=== PATIENT | female | born 1970 | race Caucasian/White ===

== ENCOUNTER 2019-04-18 15:23 | Emergency (ER) | payer BC ==
[2019-04-18 15:30] VITALS: TEMP 97.8; BMI 32.3
--- NOTE | 2019-04-18 16:47 | PDOC ---
History of Present Illness - General Chief Complaint: Pain, Acute Stated Complaint: Abdomnal pain/Headache Time Seen by Provider: 04/18/19 16:45 History Source: Patient Exam Limitations: No Limitations - History of Present Illness Initial Comments: 04/18/19 16:47 PCP: Ronald Boss Surgery: Ahmet Murrell HPI: 48 yo F no sig PMH presenting with 10 days N/V/D, abdominal pain. Seen yesterday at urgent care with reportedly negative UA, EKG, Influenza Swab. Patient endorses chronic umbilical hernia that has been worsening (more popping out) over this same period. Reports 4-5 episodes of NBNB emesis of food. Diarrhea (loose / soft, not watery) without blood or dark color. Pain is worse with BMs, worse with hernia irritation. Patient has a surgery scheduled for hernia repair in June at [facility]. Abdomen is painful when hernia is out / has been in and out - currently reduced. Denies CP, SOB, fever, chills, headache, lightheadedness, numbness / tingling. No recent travel or sick contacts. NKDA Meds: Denies PMH: Denies PSH: Hysterectomy, Cholecystectomy Past History - Travel Traveled outside of the country in the last 30 days: No Close contact w/someone who was outside of country & ill: No - Past Medical History Allergies/Adverse Reactions: Allergies Allergy/AdvReac Type Severity Reaction Status Date / Time No Known Allergies Allergy Verified 07/06/13 19:05 Home Medications: Ambulatory Orders Amox-Tr/K Cl [Augmentin - 875Mg Tablet] 1 tab PO BID 7 Days #14 tablet 04/18/19 COPD: No Dialysis: No HTN: No - Surgical History Cholecystectomy: Yes - Immunization History Immunization Up to Date: No - Psycho Social/Smoking Cessation Hx Smoking History: Never smoked Have you smoked in the past 12 months: No Information on smoking cessation initiated: No Hx Alcohol Use: No Drug/Substance Use Hx: No Review of Systems - Review of Systems Able to Perform ROS?: Yes Is the patient limited Yoruba proficient: Yes Constitutional: No: Chills, Diaphoresis, Fever, Weakness HEENTM: No: Recent change in vision, Nose Congestion, Throat Pain Respiratory: No: Cough, Shortness of Breath, Wheezing Cardiac (ROS): No: Chest Pain, Irregular Heart Rate, Lightheadedness, Palpitations, Syncope, Chest Tightness ABD/GI: Yes: Diarrhea, Nausea, Vomiting. No: Constipated, Poor Appetite, Poor Fluid Intake : No: Burning, Dysuria, Discharge, Frequency, Pain, Urgency Musculoskeletal: No: Muscle Pain, Muscle Weakness, Neck Pain Integumentary: No: Dryness, Pallor, Pruritus, Rash, Sweating Neurological: No: Headache, Numbness, Tingling, Weakness Psychiatric: No: Stressors, Change in Appetite Endocrine: No: Increased Thirst, Increased Urine Hematologic/Lymphatic: No: Anemia, Blood Clots, Easy Bleeding All Other Systems: Reviewed and Negative *Physical Exam - Vital Signs Last Vital Signs Temp Pulse Resp BP Pulse Ox 97.8 F 114 H 18 119/84 97 04/18/19 15:27 04/18/19 15:27 04/18/19 15:27 04/18/19 15:27 04/18/19 15:27 - Physical Exam 04/18/19 17:28 Vitals reviewed, mild tachycardia GEN: Well appearing, appears stated age, NAD, comfortable. AAOx3. HEENT: NCAT, EOMI, PERRL. Sclera anicteric, non-injected. No facial asymmetry. Moist mucous membranes. Normal voice. Trachea midline. CV: Tachycardic, NSR, S1/S2, no murmurs / rubs / gallops appreciated. LUNG: CTAB, normal work of breathing. No wheezes, rales, rhonchi. No cough. Speaking full sentences. GI: Soft, NTND, +BS, no guarding, no rebound. No masses. Neg CVAT b/l. EXTREMITIES: 2+ distal pulses. No LE edema. No obvious deformities of all extremities. SKIN: Warm, dry, no rashes appreciated, non-jaundiced. PSYCH: Normal mood and affect. Cooperative and appropriate. NEURO: CN grossly intact. Moving all extremities well. Normal strength and sensation grossly. ED Treatment Course - LABORATORY CBC & Chemistry Diagram: 04/18/19 17:35 04/18/19 17:35 Medical Decision Making - Medical Decision Making 04/18/19 17:28 48 yo F no sig PMH presenting with 10 days N/V/D, abdominal pain. Exam notable for tachycardia to 110s. Likely Gastroenteritis exacerbating pain from umbilical hernia, r/o ischemic bowel vs other acute intra-abdominal pathology ( colitis, ileus, diverticulitis) vs UTI/Pyelo. Tachycardia believed 2/2 hydration status. - CBC, CMP, Cardiac Profile, Lactate, Lipase, UA - 1L IVF, Zofran - EKG 04/18/19 18:21 - EKG Normal rate, rhythm, axis, normal intervals, no ischemic changes 04/18/19 20:14 - CBC with mild leukocytosis 11.4 04/18/19 20:38 - Remaining labs unremarkable, lactate pending 04/18/19 21:03 - Lactic 3.4 - Rocephin - CTAP 04/18/19 23:01 - CTAP demonstrating hepatomegaly and steatosis, wall-thickening of the colon c/ w colitis. Left ovary complex cystic process. Hernias without incarceration. Likely discharge on Augmentin 875 PO BID for 7 days Pending Repeat Lactic Acid 04/18/19 23:19 - Pt with continued nausea, reglan ordered Discharge - Discharge Information Problems reviewed: Yes Clinical Impression/Diagnosis: Nausea and vomiting Qualifiers: Vomiting type: unspecified Vomiting Intractability: non-intractable Qualified Code(s): R11.2 - Nausea with vomiting, unspecified Condition: Stable Disposition: HOME - Admission No - Additional Discharge Information Prescriptions: Amox-Tr/K Cl [Augmentin - 875Mg Tablet] 1 tab PO BID 7 Days #14 tablet - Follow up/Referral Referrals: Ronald Boss MD [Primary Care Provider] - - Patient Discharge Instructions Patient Printed Discharge Instructions: DI for Colitis Additional Instructions: You can continue to take over the counter pain medications are needed and as directed on package label for your pain. A prescription for Augmentin has been sent to your pharmacy. Take this as directed, twice daily, for 7 days. Please follow up with your primary care on Saturday and your surgeon as scheduled. Your pain is likely related to your hernia moving while you experience changes in abdominal pressure due to nausea and vomiting. Your nausea , vomiting, and diarrhea are likely due to a viral illness. Return to the ED for any new or concerning symptoms. - Post Discharge Activity
--- NOTE | 2019-04-18 17:21 | PDOC ---
Attending Attestation - Resident Resident Name: Carlos Eduardo Márquez - ED Attending Attestation I have performed the following: I have examined & evaluated the patient, The case was reviewed & discussed with the resident, I agree w/resident's findings & plan, Exceptions are as noted - HPI HPI: 04/18/19 18:31 Ms. Duffy is a 48 yo F no sig PMH presenting with 10 days of nausea, vomiting, diarrhea, abdominal pain Pt was seen in the Urgent care yesterday (influenza negative) however, her symptoms have worsened No fevers or chills Last night, pt reports that she was in the bathroom hourly Vomiting is most pronounced if she attempts to eat She is able to hydrate but has no desire to eat or drink Denies CP, SOB, fever, chills, headache, lightheadedness, numbness / tingling. No recent travel or sick contacts. NKDA Meds: Denies PMH: Denies PSH: Hysterectomy, Cholecystectomy - Physicial Exam PE: 04/18/19 17:21 GENERAL: The patient is in no acute distress. ENT: Ears normal, nares patent, oropharynx clear without exudates. Moist mucous membranes. NECK: Normal range of motion LUNGS: Breath sounds equal, clear to auscultation bilaterally. No wheezes, and no crackles. HEART:Regular rate and rhythm, normal S1 and S2 without murmur, rub or gallop. ABDOMEN: Soft, epigastric, LUQ and LLQ tenderness to palpation, no involuntary guarding or rebound EXTREMITIES: Normal range of motion, no edema. NEUROLOGICAL: Cranial nerves II through XII grossly intact. Normal speech. No focal neurological deficits. SKIN: Warm, Dry, normal turgor, no rashes or lesions noted. 04/18/19 18:33 - Medical Decision Making 04/18/19 18:38 48 yo F presenting with abdominal pain, n/v/d DD: Colitis, diverticulitis, ileus, SBO unlikely, Gastroenteritis EKG: NSR rate of 87 bpm, axis nml, intervals nml, no st elevation or depression , t wave inverted v2, v4
[2019-04-18] MEDS ORDERED: SODIUM CHLORIDE 1,000 ML IV STA (17:24)
[2019-04-18] MEDS ORDERED: ONDANSETRON 4 MG/2 ML VIAL IVPUSH ONE (18:21)
[2019-04-18 20:02] LABS: BASO % 0.7 % (0-2.0); EOS % 2.3 % (0-4.5); HEMATOCRIT 38.9 % (32.4-45.2); HEMOGLOBIN 12.1 GM/dL (10.7-15.3); LYMPH % 17.3 % (8-40); MCH 24.7 pg (25.7-33.7); MCHC 31.2 g/dl (32.0-36.0); MEAN CELL VOLUME 79.1 fl (80-96); MEAN PLT VOLUME 8.7 fl (7.5-11.1); MONO % 7.2 % (3.8-10.2); NEUT % 72.5 % (42.8-82.8); PLATELET COUNT 371 K/MM3 (134-434); RBC 4.92 M/mm3 (3.60-5.2); RDW 14.8 % (11.6-15.6); WHITE BLOOD COUNT 11.4 K/mm3 (4.0-10.0)
[2019-04-18 20:30] LABS: ALBUMIN 3.4 g/dl (3.4-5.0); ALK PHOS 67 U/L (45-117); ANION GAP 8 MMOL/L (8-16); BILIRUBIN,TOTAL 0.6 mg/dL (0.2-1); BLOOD UREA NITROGEN 10.5 mg/dL (7-18); CALCIUM 8.2 mg/dL (8.5-10.1); CHLORIDE 106 mmol/L (98-107); CO2 26 mmol/L (21-32); CREATININE 0.7 mg/dL (0.55-1.3); GLUCOSE,RANDOM 95 mg/dL (74-106); LIPASE 126 U/L (73-393); SGOT/AST 14 U/L (15-37); SGPT/ALT 19 U/L (13-61); SODIUM 140 mmol/L (136-145); TOT PROT 7.2 g/dl (6.4-8.2)
[2019-04-18] MEDS ORDERED: CEFTRIAXONE 1 GM in DEXTROSE 5%-WATER - 100 ML IVPB ONE (21:03)
[2019-04-18] MEDS ORDERED: CEFTRIAXONE 1 GM/50 ML BAG ONE (21:41)
--- NOTE | 2019-04-18 23:14 | PDOC ---
*Physical Exam - Vital Signs Last Vital Signs Temp Pulse Resp BP Pulse Ox 97.8 F 114 H 18 119/84 99 04/18/19 15:27 04/18/19 15:27 04/18/19 15:27 04/18/19 15:27 04/18/19 16:30 - Physical Exam 04/19/19 19:55 Pt picked up on signout. 48 yo F no sig PMH presenting with 10 days N/V/D, abdominal pain. Seen yesterday at urgent care with reportedly negative UA, EKG, Influenza Swab. Patient endorses chronic umbilical hernia that has been worsening (more popping out) over this same period. Reports 4-5 episodes of NBNB emesis of food. Diarrhea (loose / soft, not watery) without blood or dark color. Pain is worse with BMs, worse with hernia irritation. Patient has a surgery scheduled for hernia repair in June at [facility]. Abdomen is painful when hernia is out / has been in and out - currently reduced. ED Treatment Course - LABORATORY CBC & Chemistry Diagram: 04/18/19 17:35 04/18/19 17:35 - ADDITIONAL ORDERS Additional order review: Laboratory Results 04/18/19 04/18/19 19:43 17:35 Sodium 140 Potassium 4.0 Chloride 106 Carbon Dioxide 26 Anion Gap 8 BUN 10.5 Creatinine 0.7 Est GFR (CKD-EPI)AfAm 117.09 Est GFR (CKD-EPI)NonAf 101.02 Random Glucose 95 Lactic Acid 3.4 H* Calcium 8.2 L Total Bilirubin 0.6 AST 14 L ALT 19 Alkaline Phosphatase 67 Creatine Kinase 55 Troponin I < 0.02 Total Protein 7.2 Albumin 3.4 Lipase 126 04/18/19 17:35 RBC 4.92 MCV 79.1 L MCHC 31.2 L RDW 14.8 D MPV 8.7 Neutrophils % 72.5 Lymphocytes % 17.3 Monocytes % 7.2 Eosinophils % 2.3 Basophils % 0.7 - Medications Given in the ED: ED Medications Discontinued Medications Generic Name Dose Route Start Last Admin Trade Name Freq PRN Reason Stop Dose Admin Sodium Chloride 1,000 mls @ 1,000 mls/hr 04/18/19 17:24 04/18/19 18:45 Normal Saline - IV 04/18/19 18:23 1,000 mls/hr ASDIR STA Administration Ceftriaxone Sodium 1 gm/ 100 mls @ 200 mls/hr 04/18/19 21:03 04/18/19 22:51 Dextrose IVPB 04/18/19 21:32 200 mls/hr ONCE ONE Administration Ondansetron HCl 4 mg 04/18/19 18:21 04/18/19 18:46 Zofran Injection IVPUSH 04/18/19 18:22 4 mg NOW ONE Administration Medical Decision Making - Medical Decision Making 04/18/19 23:12 Patient Name: PABLITO MOSLEY THIS IS A PRELIMINARY REPORT FROM [facility] DATE OF SERVICE: 2019-04-18 21:29:46 IMAGES: [id number] EXAM: CT ABDOMEN WITH CONTRAST AND CT PELVIS CT WITH CONTR HISTORY: 48-Year-Old Female Assess For Colitis Assess For Ischemia COMPARISON: None. Contrast: 100 mL Omnipaque intravenous contrast FINDINGS: Mild basilar atelectasis. Hepatomegaly and steatosis. Status post cholecystectomy. Pancreas spleen and adrenal glands kidneys appear unremarkable. No nephrolithiasis or hydronephrosis. Lack of oral contrast limits this exam. Nonoral contrast evaluation stomach small bowel appear unremarkable. Appendix is not identified. Moderate amount of gas and stool in the colon. Mild nonspecific wall thickening of the colon most likely due to mild infectious or inflammatory colitis. Status post hysterectomy. Left ovary complex cystic process. No free air. No free fluid. No abscess. Moderate periumbilical hernia of omental fat without incarceration. Small umbilical hernia omental fat without incarceration. Mild to moderate degenerative disc disease. Subcentimeter mesenteric lymph nodes noted. IMPRESSION: Hepatomegaly and steatosis. Mild nonspecific wall thickening of the colon most likely due to mild infectious or inflammatory colitis. Left ovary complex cystic process. Moderate periumbilical hernia of omental fat without incarceration. Small umbilical hernia omental fat without incarceration. Mild to moderate degenerative disc disease. 04/18/19 23:13 Pt has a colitis and she has a lactic acid of 3.4 We will repeat lactic acid and treat with IVF another L NSS and reeval. if stable, pt can follow with PMD and take augmentin 875BID x 7-10 days. Discharge - Discharge Information Problems reviewed: Yes Clinical Impression/Diagnosis: Nausea and vomiting Qualifiers: Vomiting type: unspecified Vomiting Intractability: non-intractable Qualified Code(s): R11.2 - Nausea with vomiting, unspecified Condition: Stable Disposition: HOME - Additional Discharge Information Prescriptions: Amox-Tr/K Cl [Augmentin - 875Mg Tablet] 1 tab PO BID 7 Days #14 tablet - Follow up/Referral Referrals: Ronald Boss MD [Primary Care Provider] - - Patient Discharge Instructions Patient Printed Discharge Instructions: DI for Colitis Additional Instructions: You can continue to take over the counter pain medications are needed and as directed on package label for your pain. A prescription for Augmentin has been sent to your pharmacy. Take this as directed, twice daily, for 7 days. Please follow up with your primary care on Saturday and your surgeon as scheduled. Your pain is likely related to your hernia moving while you experience changes in abdominal pressure due to nausea and vomiting. Your nausea , vomiting, and diarrhea are likely due to a viral illness. Return to the ED for any new or concerning symptoms. - Post Discharge Activity
[2019-04-18] MEDS ORDERED: METOCLOPRAMIDE HCL INJECTION 10 MG/2 ML VIAL IVPB ONE (23:19)
[2019-04-18] MEDS ORDERED: METOCLOPRAMIDE HCL INJECTION 10 MG/2 ML VIAL ONE (23:20)
[2019-04-19 00:56] VITALS: BP 121/76; PULSE 89
--- NOTE | 2019-04-19 13:27 | EKG ---
Test Reason : Blood Pressure : / mmHG Vent. Rate : 087 BPM Atrial Rate : 087 BPM P-R Int : 160 ms QRS Dur : 092 ms QT Int : 374 ms P-R-T Axes : 041 -01 050 degrees QTc Int : 450 ms NORMAL SINUS RHYTHM POSSIBLE LEFT ATRIAL ENLARGEMENT BORDERLINE ECG WHEN COMPARED WITH ECG OF 14-MAR-2009 05:52, NO SIGNIFICANT CHANGE WAS FOUND Confirmed by LAUREN JOHNSTON MD ([id number]) on 04/19/2019 1:27:10 PM Referred By: Confirmed By:LAUREN JOHNSTON MD
== END 2019-04-19 00:56 | disposition home or self-care (01) ==
LOC: JER 15:23
PROC: 3E0337Z Introduction of Electrolytic and Water Balance Substance into Peripheral Vein, Percutaneous Approach (ICD-10-PCS; principal; 2019-04-18)
PROC: 3E03329 Introduction of Other Anti-infective into Peripheral Vein, Percutaneous Approach (ICD-10-PCS; 2019-04-18)
PROC: 3E033GC Introduction of Other Therapeutic Substance into Peripheral Vein, Percutaneous Approach (ICD-10-PCS; 2019-04-18)
PROC: 3E033GC Introduction of Other Therapeutic Substance into Peripheral Vein, Percutaneous Approach (ICD-10-PCS; 2019-04-18)
DX: K52.9 Noninfective gastroenteritis and colitis, unspecified (principal); N83.202 Unspecified ovarian cyst, left side; K42.9 Umbilical hernia without obstruction or gangrene; R16.0 Hepatomegaly, not elsewhere classified
CPT/HCPCS: 36415; 74177-TC; 80053; 82550; 83605; 83690; 84484; 85025; 93005; 93010; 99283-25; J7030; Q9967